=== PATIENT | female | born 1985 | race Two or more races ===

== ENCOUNTER 2023-11-21 02:14 | Emergency (ER) | payer SELFPAY ==
[~2023-11-21] VITALS: Ht 160 cm; Wt 72.6 kg
[2023-11-21 02:30] VITALS: PULSE 79; RESP 16; TEMP 97.9; O2SAT 99
[2023-11-21] MEDS: FAMOTIDINE 20 MG/2 ML VIAL IV STA (03:03)
[2023-11-21] MEDS: SODIUM CHLORIDE 0.9% 1000ML 1,000 ML IV ONE (03:03)
[2023-11-21] MEDS: ASPIRIN 325 MG TAB PO ONE (03:03)
[2023-11-21] MEDS ORDERED: FLUNISOLIDE25 ML (03:36)
[2023-11-21] MEDS ORDERED: CYCLOBENZAPRINE5 MG PO (03:36)
[2023-11-21 03:56] VITALS: BP 120/88; PULSE 88; RESP 18; TEMP 98
== END 2023-11-21 03:55 | disposition home or self-care (01) ==
LOC: FSED 02:20
DX: R07.89 Other chest pain (principal); J33.9 Nasal polyp, unspecified; K21.9 Gastro-esophageal reflux disease without esophagitis; F41.9 Anxiety disorder, unspecified
CPT/HCPCS: 71045; 99284; J7030